=== PATIENT | female | born 1995 | race Caucasian/White ===

== ENCOUNTER 2017-03-31 01:43 | Emergency (ER) | payer MEDICAID ==
--- NOTE | ~2017-03-31 | ER ---
PATIENT'S NAME: MERRY LYONS [facility] AGE: 22 Y [address] ROOM: [place] [address] LOCATION: [facility] ADMIT DATE: 03/31/2017 ER/Outpatient Report DISCHARGE DATE: FAMILY PHYSICIAN: PHYSICIAN, NO ATTENDING PHYSICIAN: Jair Vega Admission date and time documented in the medical record. I saw the patient at 0200 hours. CHIEF COMPLAINT: Chest pain. HISTORY OF PRESENT ILLNESS: The patient is a 22-year-old female, who comes in with anterior chest pain, nonradiating. She has had this pain for about 4 hours. It started when she was working. Doing a lot of heavy pushing, pulling, and lifting at work clean. Describes it as a burning sharp pain. No nausea, vomiting, diarrhea, urinary complaints, abdominal pain, or diaphoresis. Having some mild shortness of breath with some lightheadedness. Pain increases with movement and deep breaths. No recent colds, coughs, flus, fever, chills, or sweats. No headache, eyes, ears, nose, throat, neck, or spine pain. No syncope. No joint or muscle swelling, redness, or pain. No skin eruptions or rash. No history of neuro changes, psych issues, endocrine problems. HOME MEDICATIONS: None. ALLERGIES: NONE. SOCIAL HISTORY: Nonsmoker, nondrinker. SIGNIFICANT PAST MEDICAL HISTORY: Negative. OPERATIONS: None. REVIEW OF SYSTEMS: All systems reviewed by me are negative with the exception of those discussed in the history of present illness. PHYSICAL EXAMINATION: VITAL SIGNS: Temperature 98.2 tympanic, pulse 96, respirations 16, blood PATIENT'S NAME: MERRY LYONS [facility] AGE: 22 Y [address] ROOM: [place] [address] LOCATION: [facility] ADMIT DATE: 03/31/2017 ER/Outpatient Report DISCHARGE DATE: FAMILY PHYSICIAN: PHYSICIAN, NO ATTENDING PHYSICIAN: Jair Vega pressure 136/65, O2 saturation on room air is 100%. Mahamed Coma Scale is 15. HEAD: Normocephalic. EYES, EARS, NOSE, THROAT: Clear. NECK: Negative. SPINE: Negative. LUNGS: Clear, good air flow. No rales, rhonchi, or wheezes. HEART: Regular. Pulses are palpable. Chest wall pain to palpation across the anterior chest wall. ABDOMEN: Soft, nondistended, nontender. Good bowel tones. No organomegaly or abnormal mass palpable. No CVA tenderness. EXTREMITIES: Intact. NEUROVASCULAR: Intact. SKIN: Clear. No skin eruptions or rash. LABORATORY DATA AND X-RAYS: EKG showed sinus rhythm, no acute ST elevation, ischemic change, or arrhythmia. Chest x-ray showed no acute infiltrate or changes. We will review x-ray with the radiologist. Laboratory: White count was 8100, 66 segs, 26 lymphocytes, 6 monos, 1 eo, 1 baso, hemoglobin was 11.2 with hematocrit 35.5, platelet count was 204,000. PTT was 26, pro-time was 10.7, INR 1.02. CMS was normal except an elevated glucose 126, low calcium 8.4, magnesium 2.1. CPK was 98. [id number] cardiac enzymes were normal. D-dimer was normal at 0.28. EMERGENCY DEPARTMENT COURSE: I did give the patient 4 baby aspirin orally in the emergency room. Toradol 30 mg IV in the emergency room. Solu-Medrol 125 mg IV in the emergency room. IMPRESSION: Anterior chest pain. Etiology uncertain. Most likely costochondritis. PLAN: The patient dismissed home. Observation. Activity as tolerated. Heating pad to sore area of the chest intermittently as needed. Medrol Dosepak take as directed. Toradol 10 mg 1 every 6 hours x12 doses. Follow up with personal physician as needed. Discussion ensued with the patient concerning my findings and recommendations, she understands. JAIR VEGA MD SDS/modl PATIENT'S NAME: MERRY LYONS [facility] AGE: 22 Y [address] ROOM: [place], [place] [address] LOCATION: [facility] ADMIT DATE: 03/31/2017 ER/Outpatient Report DISCHARGE DATE: FAMILY PHYSICIAN: PHYSICIAN, NO ATTENDING PHYSICIAN: Jair Vega /[id number] d: 03/31/17 0306 t: 04/08/17 1826, OUTPATIENT REPORT
[~2017-03-31 01:43] MED LIST: PHENERGAN25 M1 PO; PRENATAL 1+1)(P1 TAB PO
[2017-03-31 02:09] LABS: BASOPHIL % 0.5 %; EOSINOPHIL # 0.1 K/uL (0.0-0.5); EOSINOPHIL % 1.4 %; HEMATOCRIT 35.5 % (33.0-46.0); HEMOGLOBIN 11.2 g/dL (11.0-15.0); IMMATURE GRANULOCYTE % 0.2 %; LYMPHOCYTE # 2.1 K/uL (0.8-4.0); LYMPHOCYTE % 25.8 %; MCH 27.7 pg (27.0-34.0); MCHC 31.5 gm/dL (32.0-36.5); MCV 87.7 fl (83.0-98.0); MONOCYTE # 0.5 K/uL (0.0-1.0); MONOCYTE % 5.8 %; MPV 10.7 fl (9.4-12.4); NEUTROPHIL # (ANC) 5.3 K/uL (1.8-7.8); NEUTROPHIL % 66.3 %; NRBC % 0 /100WBC (0-0.00); PLATELET COUNT 204 K/uL (150-450); RDW-CV 14.5 % (11.9-14.6); WBC 8.1 K/uL (4.0-11.0)
[2017-03-31 02:12] LABS: RBC 4.05 M/uL (3.50-5.00)
[2017-03-31 02:21] LABS: INR - (THERAPEUTIC) 1.02 (0.92-1.07); PROTIME 10.7 SECONDS (9.8-11.4); PTT 26 SECONDS (25-32)
[2017-03-31 02:28] LABS: ALBUMIN 3.8 gm/dL (3.5-5.0); ALK PHOS 57 IU/L (33-138); ALT 12 IU/L (12-78); ANION GAP 10.9 (10.0-19.0); AST 15 IU/L (10-40); BLOOD UREA NITROGEN 11 mg/dL (6-24); CALCIUM 8.4 mg/dL (8.5-10.5); CHLORIDE 109 mMol/L (96-110); CO2 25 mMol/L (22-32); CPK 98 IU/L (21-215); CREATININE 0.8 mg/dL (0.5-1.1); ESTIMATED GFR (MDRD EQUATION) > 60; MAGNESIUM 2.1 mg/dL (1.8-2.6); POTASSIUM 3.9 mMol/L (3.7-5.1); SODIUM 141 mMol/L (135-145); TOTAL PROTEIN 7.2 g/dL (6.0-8.4)
== END 2017-03-31 03:03 | disposition disaster alternative care site (69) ==
LOC: GMED 01:43
PROVIDERS: Emergency Medicine
DX: R07.89 Other chest pain (principal)
CPT/HCPCS: J1885; J2930